=== PATIENT | female | born 1955 | race Caucasian/White ===

== ENCOUNTER 2024-07-08 13:11 | Outpatient (RCR) | payer MEDICARE, SELFPAY ==
--- NOTE | 2024-07-08 14:24 | OPREHPOC ---
Outpatient Therapy Plan of Care This is a Multidisciplinary Plan of Care that may contain components documented by all disciplines (PT, OT, and ST.) PT Problem 1 PT Problem #1 Knowledge Deficit PT Goal 1 Goal / Goal Update *indep with HEP * pt use correct body mechanics with lifting from the floor Target Visit 3 PT Problem 2 PT Problem #2 Pain PT Goal 1 Goal / Goal Update 1* pt report pain rating at worst of 1/10 with increase exercises Target Visit 3 PT Problem 3 PT Problem #3 Impaired Strength PT Goal 1 Goal / Goal Update increase trunk/abdominal strength to improve stability and support to lumbar spine 1* pt perform 15 reps of sitting ball exercises with good stability 2* pt perform bilateral UE 10# box lifting waist/ floor height Target Visit 3
--- NOTE | 2024-07-08 14:24 | PTOPEVAL1 ---
Assessment and note entered by Ning Gustafson, PT Evaluation Information Assessment Status Evaluation ICD-10 Condition Codes (PT) M54.16 Onset March 2024 Subjective Information chronic back pain, flared up about 3 months ago-- more leg pain and taking more pain meds; xray: at another facility, pt not know results have had cortisone shots in back > 20 years ago no PT in the past; had chiropractor care- it did not help, made her pain worse Activity: retired; am able to do all of her home and self care tasks. goes 2x/wk to gym for fitness exercises and weights; back is not bothered with them Reported Pain Level Pain Score Self Report Additional Pain Score Comments pain range in the past week 0-1/10; pain is less now, have not had any pain into legs in the past month- was in both legs to ankles; do have some tightness posterior L leg, but not pain as of recently- no problems with sitting, standing walking, sleeping; when have pain, take over the counter meds PRN Assessment PT Clinical Summary Bernadette has the diagnosis of lumbar radiculopathy. She reports her pain is much less now, no longer has pain into her legs, it comes and goes, she does not know why. About 3 months ago, she started going to the fitness center for exercise classes. Her history includes chronic low back pain and colon cancer. Oswestry self assessment of 14% limitation in activity level. With the evaluation: she has good flexibility of trunk and hips, with slight tightness over L piriformis; decreased strength of trunk/ abdominals; does not have a home exercise program for back and demonstrated poor body mechanics with lifting from the floor. Monitor back pain as increase activity. Plan of Care Interventions Hot Pack/Cold Pack,Manual Therapy,Neuro Re- education,Patient Education,Therapeutic Activities,Therapeutic Exercise,Ultrasound,Other Other Interventions taping PT Services Indicated Yes Treatment Frequency and 1x/week for 3 visits Duration These treatments will address the objective and functional deficits as defined above. The patient will be advanced safely and appropriately in order for the patient to progress towards his/her prior level of function. Additional exercises will be introduced and as well as a comprehensive home exercise program upon discharge, if needed, ?to ensure carryover of functional gains achieved in the clinic. This treatment plan has been reviewed and agreement upon by the patient.
--- NOTE | 2024-07-29 09:47 | PCPTNOTE ---
pt called and canceled today's appt due to being ill.
--- NOTE | 2024-08-11 08:37 | PTOPDC ---
Assessment and note entered by Ning Gustafson, PT Assessment Status Discharge - Pt Not Present ICD-10 Condition Codes (PT) Radiculopathy, lumbar region M54.16 Onset March 2024 Subjective Information pt was not seen this date. Assessment PT Clinical Summary Bernadette received the PT evaluation on 07-08-24. Called and canceled 1 appointment and has not returned for any further treatment. Discharge PT services. The goals were not addressed. Plan of Care PT Services Indicated No
== END 2024-08-11 12:38 | disposition home or self-care (01) ==
LOC: ANHPT 13:11
PROVIDERS: PCP Family Medicine; Visit Provider Family Medicine
DX: M54.42 Lumbago with sciatica, left side (principal); M54.41 Lumbago with sciatica, right side; G89.29 Other chronic pain; M79.604 Pain in right leg; M79.605 Pain in left leg
CPT/HCPCS: 97110; 97161; 97530